=== PATIENT | male | born 1975 ===

== ENCOUNTER 2017-03-24 16:47 | Emergency (ER) | payer BC ==
[2017-03-24] MEDS ORDERED: DOXYcycline CAP(*) 100 MG PO ONE (18:40)
--- NOTE | 2017-03-24 19:39 | UC ---
Skin Complaint HPI - HPI Summary HPI Summary: Pt presents with c/o of tick bite to left anterior upper arm. that he removed earlier today. He states the the tick was tiny only attached for minutes. Pt now has small bruise at site and bullseye henny at bite site. - History of Current Complaint Chief Complaint: UCSkin Time Seen by Provider: 03/24/17 18:35 Stated Complaint: TICK Hx Obtained From: Patient Onset/Duration: Sudden Onset, Lasting Hours, Still Present Skin Exposure Onset/Duration: Hours Ago Timing: Constant Onset Severity: Mild Current Severity: Mild Pain Intensity: 2 Pain Scale Used: 0-10 Numeric Location: Discrete - left upper anterior arm Character: Redness Aggravating Factor(s): Nothing Alleviating Factor(s): Unknown Associated Signs & Symptoms: Positive: Bruising Related History: Insect Bite/Sting - Allergy/Home Medications Allergies/Adverse Reactions: Allergies Allergy/AdvReac Type Severity Reaction Status Date / Time Aspirin AdvReac Nausea And Verified 03/24/17 18:31 Vomiting Home Medications: Home Medications Pseudoephedrine-Naproxen Sodiu [Aleve-D Sinus & Headache 120-220 mg] 1 tab PO ONCE 03/24/17 [History Confirmed 03/24/17] Review of Systems Constitutional: Negative Skin: Bruising, Other - bulls eye henny Eyes: Negative ENT: Negative Respiratory: Negative Cardiovascular: Negative Gastrointestinal: Negative Genitourinary: Negative Motor: Negative Neurovascular: Negative Musculoskeletal: Negative Neurological: Negative Psychological: Negative Is Patient Immunocompromised?: No All Other Systems Reviewed And Are Negative: Yes PMH/Surg Hx/FS Hx/Imm Hx Previously Healthy: Yes - Surgical History Surgical History: None - Family History Known Family History: Positive: Cardiac Disease - Social History Occupation: Employed Full-time Lives: With Family Alcohol Use: Rare Substance Use Type: None Smoking Status (MU): Never Smoked Tobacco Have You Smoked in the Last Year: No Physical Exam Triage Information Reviewed: Yes Appearance: Well-Appearing Vital Signs: Initial Vital Signs Temp 98.4 F 03/24/17 18:24 Pulse 67 03/24/17 18:24 Resp 16 03/24/17 18:24 BP 126/74 03/24/17 18:24 Pulse Ox 98 03/24/17 18:24 Eye Exam: Normal ENT Exam: Normal Neck exam: Normal Respiratory Exam: Normal Cardiovascular Exam: Normal Musculoskeletal Exam: Normal Neurological Exam: Normal Psychological Exam: Normal Skin Exam: Other - bruising, and bulls eye rash on left upper anterior arm. Skin: Positive: rashes Course/Dx - Differential Diagnoses - Skin Complaint Differential Diagnoses: Tick Born Illness - Diagnoses Provider Diagnoses: INsect bite/tick Discharge - Discharge Plan Condition: Stable Disposition: HOME Patient Education Materials: Tick Bite (ED) Referrals: [facility] [place], [place] [facility] [Outside] Raheel Patterson DO [Doctor of Osteopathy] - If Needed
== END 2017-03-24 18:53 | disposition home or self-care (01) ==
LOC: UCCORT 16:47
DX: S40.862A Insect bite (nonvenomous) of left upper arm, initial encounter (principal); Z88.6 Allergy status to analgesic agent; W57.XXXA Bitten or stung by nonvenomous insect and other nonvenomous arthropods, initial encounter; Y92.9 Unspecified place or not applicable
CPT/HCPCS: 99202; A9270-GY; G0463